=== PATIENT | female | born 1965 | race Caucasian/White ===

== ENCOUNTER 2022-05-02 16:52 | Emergency (ER) | payer OTHER ==
[~2022-05-02] VITALS: Ht 165.1 cm; Wt 65.3 kg
[2022-05-02 17:32] LABS: MEAN CORPUSCULAR VOLUME 84.1 fL (75.5-95.3); PLATELET COUNT (AUTO) 234 K/uL (179-408)
[2022-05-02 17:41] LABS: CARBON DIOXIDE 30 mmol/L (21-32); CHLORIDE 101 mmol/L (98-107); CREATININE 0.8 mg/dL (0.6-1.3); GLUCOSE 162 mg/dL (74-106); POTASSIUM 4.2 mmol/L (3.5-5.1); UREA NITROGEN, BLOOD 16 mg/dL (7-18)
[2022-05-02] MEDS ORDERED: MECLIZINE HCL 25 MG TABLET PO ONE (18:30)
[2022-05-02] MEDS ORDERED: MECLIZINE HCL 25 MG TABLET ONE (18:50)
[2022-05-02] MEDS ORDERED: MECL-159 PO (19:21)
[2022-05-02 23:36] VITALS: BP 133/78
== END 2022-05-02 23:37 | disposition home or self-care (01) ==
LOC: ER 16:52
DX: R42 Dizziness and giddiness (principal); R20.2 Paresthesia of skin
CPT/HCPCS: 36415; 70450; 71045; 84484; 85025; 85730; 93005; A4663; J8597